=== PATIENT | male | born 1965 | race Caucasian/White ===

== ENCOUNTER → 2017-01-21 | Outpatient (CLI) | payer BC ==
--- NOTE | 2017-01-21 12:15 | DIAGNOSTIC IMAGING REPORT ---
RIGHT CALF ULTRASOUND CLINICAL HISTORY: Right calf pain status post trauma COMPARISON STUDY: No previous studies for comparison. FINDINGS: There is a complex fluid collection within the right calf posteriorly measuring 57 x 11 x 17 mm. This intramuscular, and likely represents an intramuscular hematoma secondary to a partial tear. Clinical follow-up is advocated. IMPRESSION: 57 x 11 x 17 mm intramuscular fluid collection within the posterior calf, likely representing a hematoma. Clinical follow-up is advocated Electronically signed by: Julian Rizvi M.D. 01/21/2017 12:13 PM Dictated Date/Time: 01/21/2017 12:11 PM
--- NOTE | 2017-01-21 12:51 | DIAGNOSTIC IMAGING REPORT ---
ULTRASOUND RIGHT VENOUS DOPP LOWER EXT UNILAT CLINICAL HISTORY: Right leg swelling COMPARISON STUDY: No previous studies for comparison. FINDINGS: Real-time and color flow Doppler imaging were performed. Flow was seen within the femoral, popliteal and calf veins with no intraluminal thrombus demonstrated. The saphenous vein is patent. IMPRESSION: No evidence of right lower extremity DVT Electronically signed by: Julian Rizvi M.D. 01/21/2017 12:49 PM Dictated Date/Time: 01/21/2017 12:48 PM
== END | disposition home or self-care (01) ==
LOC: C.ULTR 11:15
PROVIDERS: ATTEND Student in an Organized Health Care Education/Training Program
DX: S89.90XA Unspecified injury of unspecified lower leg, initial encounter (principal); S93.409A Sprain of unspecified ligament of unspecified ankle, initial encounter; X58.XXXA Exposure to other specified factors, initial encounter